=== PATIENT | female | born 1995 | race Caucasian/White ===

== ENCOUNTER 2019-04-16 12:10 | Inpatient (IN) | payer OTHER ==
[2019-04-16 15:26] VITALS: BMI 22.0
--- NOTE | 2019-04-16 16:40 | HP ---
COWS - Scale Resting Pulse: 0= [place] 80 or Below Sweatin=Flushed/Facial Moisture Restless Observation: 1= Difficult to Sit Still Pupil Size: 0= Normal to Room Light Bone or Joint Aches: 2= Severe Diffuse Aches Runny Nose/ Eye Tearin= Nasal Congestion GI Upset > 30mins: 1= Stomach Cramp Tremor Observation: 2= Slight Tremor Visible Yawning Observation: 2= >3x During Session Anxiety or Irritability: 2=Irritable/Anxious Goose Flesh Skin: 0=Smooth Skin COWS Score: 13 CIWA Score - Admission Criteria [facility]ASAS Guidelines: Admission for Medically Managed Detox: Requires at least one of the followin. CIWA greater than 12 2. Seizures within the past 24 hours 3. Delirium tremens within the past 24 hours 4. Hallucinations within the past 24 hours 5. Acute intervention needed for co occurring medical disorder 6. Acute intervention needed for co occurring psychiatric disorder 7. Severe withdrawal that cannot be handled at a lower level of care (continued vomiting, continued diarrhea, abnormal vital signs) requiring intravenous medication and/or fluids 8. Admission ROS [facility] - [facility] Chief Complaint: I need to stop using the percocets. This is taking over my life for the past 7years and now I am ready for detox. Allergies/Adverse Reactions: Allergies Allergy/AdvReac Type Severity Reaction Status Date / Time No Known Allergies Allergy Verified 04/16/19 15:17 History of Present Illness: pt is a 24yr old female with a history of percocet dependence seeking detox for treatment. This is her first time in detox. Exam Limitations: No Limitations - Ebola screening Have you traveled outside of the country in the last 21 days: No Have you had contact with anyone from an Ebola affected area: No Have you been sick,other than usual withdrawal symptoms: No Do you have a fever: No - Review of Systems Constitutional: Chills, Loss of Appetite, Night Sweats, Changes in sleep EENT: reports: Tearing, Nose Congestion Respiratory: reports: No Symptoms reported Cardiac: reports: No Symptoms Reported GI: reports: Poor Fluid Intake, Abdominal cramping : reports: No Symptoms Reported Musculoskeletal: reports: Back Pain, Muscle Pain Integumentary: reports: Flushing, Sweating Neuro: reports: Tingling, Tremors Endocrine: reports: Excessive Sweating, Flushing, Intolerance to Cold, Intolerance to Heat Hematology: reports: No Symptoms Reported Psychiatric: reports: Judgement Intact, Mood/Affect Appropiate, Orientated x3, Agitated, Anxious Other Systems: Reviewed and Negative Patient History - Patient Medical History Hx Anemia: No Hx Asthma: No Hx Chronic Obstructive Pulmonary Disease (COPD): No Hx Cancer: No Hx Cardiac Disorders: No Hx Congestive Heart Failure: No Hx Hypertension: No Hx Hypercholesterolemia: No Hx Pacemaker: No HX Cerebrovascular Accident: No Hx Seizures: No Hx Dementia: No Hx Diabetes: No Hx Gastrointestinal Disorders: No Hx Liver Disease: No Hx Genitourinary Disorders: No Hx Sexually Transmitted Disorders: No Hx Renal Disease (ESRD): No Hx Thyroid Disease: No Hx Human Immunodeficiency Virus (HIV): No (negative) Hx Hepatitis C: No (negative) Hx Depression: No Hx Suicide Attempt: No (pt denies) Hx Bipolar Disorder: No Hx Schizophrenia: No - Patient Surgical History Past Surgical History: Yes Other Surgical History: breast augmentation - PPD History Previous Implant?: Yes Documented Results: Negative w/o proof PPD to be Administered?: Yes - Reproductive History Patient is a Female of Child Bearing Age (11 -55 yrs old): Yes LMP comment: 09/2018; on control/implant in left forarm Patient : No - Smoking Cessation Smoking history: Current every day smoker Have you smoked in the past 12 months: Yes Aproximately how many cigarettes per day: 40 Hx Chewing Tobacco Use: No Initiated information on smoking cessation: Yes 'Breaking Loose' booklet given: 04/16/19 - Substance & Tx. History Hx Alcohol Use: Yes Hx Substance Use: Yes Substance Use Type: Marijuana, Opiates Hx Substance Use Treatment: No - Substances abused Other Other (specify): Percocet Substance route: Oral Frequency: Daily Amount used: 25-30 pills of Percocet 10mg Age of first use: 16 Date of last use: 04/16/19 Marijuana/Hashish Substance route: Smoking Frequency: Daily Amount used: 2-3 blints per day Age of first use: 13 Date of last use: 04/15/19 Family Disease History - Family Disease History Family History: Denies Admission Physical Exam BHS - Vital Signs Vital Signs: Vital Signs - 24 hr 04/16/19 15:19 Temperature 98.2 F Pulse Rate 63 Respiratory 18 Rate Blood Pressure 99/64 - Physical General Appearance: Yes: Appropriately Dressed, Moderate Distress, Tremorous, Irritable, Sweating, Anxious HEENTM: Yes: Hearing grossly Normal, Normal Voice, Nasal Congestion, Rhinorrhea Respiratory: Yes: Lungs Clear, Normal Breath Sounds, No Respiratory Distress Neck: Yes: No masses,lesions,Nodules Breast: Yes: Within Normal Limits Cardiology: Yes: Regular Rhythm, Regular Rate, S1, S2 Abdominal: Yes: Normal Bowel Sounds, Non Tender, Soft Genitourinary: Yes: Within Normal Limits Back: Yes: Normal Inspection Musculoskeletal: Yes: full range of Motion Extremities: Yes: Normal Capillary Refill, Normal Inspection, Non-Tender, Tremors Neurological: Yes: Fully Oriented, Normal Response Integumentary: Yes: Normal Color, Diaphoresis Lymphatic: Yes: Within Normal Limits - Diagnostic (1) Opioid dependence with withdrawal Current Visit: Yes Status: Chronic (2) Nicotine dependence Current Visit: Yes Status: Chronic Qualifiers: Nicotine product type: cigarettes Substance use status: uncomplicated Qualified Code(s): F17.210 - Nicotine dependence, cigarettes, uncomplicated (3) H/O breast augmentation Current Visit: No Status: Chronic Cleared for Admission [facility] - Detox or Rehab [facility] Level of Care: Medically Managed Detox Regimen/Protocol: Methadone Breathalyzer - Breathalyzer Breathalyzer: 0 Urine Drug Screen - Test Device Lot number: [id number] Expiration date: 12/19/20 - Control Is test valid?: Yes - Results Drug screen NEGATIVE: No Urine drug screen results: THC-Marijuana, MOP-Opiates, OXY-Oxycodone Inpatient Rehab Admission - Rehab Decision to Admit Inpatient rehab admission?: No
[2019-04-16] MEDS ORDERED: hydrOXYzine PAMOATE 25 MG CAPSULE (FP) PO PRN (17:09)
[2019-04-16] MEDS ORDERED: MAG HYDROX/AL HYDROX/SIMETH 30 ML UNIT-DOSE CUP PO PRN (17:09)
[2019-04-16] MEDS ORDERED: P-EPHED 60MG/TRIPROLIDI 2.5MG TABLET PO PRN (17:09)
[2019-04-16] MEDS ORDERED: ACETAMINOPHEN 325 MG TABLET (FP) PO PRN ×2 (17:09)
[2019-04-16] MEDS ORDERED: MENTHOL/PHENOL 1 EACH UD MM PRN (17:09)
[2019-04-16] MEDS ORDERED: cloNIDine HCL 0.1 MG TABLET PO PRN (17:09)
[2019-04-16] MEDS ORDERED: NICOTINE POLACRILEX 4 MG GUM BUC PRN (17:09)
[2019-04-16] MEDS ORDERED: IBUPROFEN 400 MG TABLET (FP) PO PRN (17:09)
[2019-04-16] MEDS ORDERED: DICYCLOMINE HCL 10 MG CAPSULE PO PRN (17:09)
[2019-04-16] MEDS ORDERED: ONDANSETRON *ODT* 4 MG TABLET SL PRN (17:09)
[2019-04-16] MEDS ORDERED: MAGNESIUM CITRATE 300 ML BOTTLE PO PRN (17:09)
[2019-04-16] MEDS ORDERED: MAGNESIUM HYDROX 2400MG/30ML ORAL SUSPENSION 30 ML CUP PO PRN (17:09)
[2019-04-16] MEDS ORDERED: METHADONE HCL 10 MG TABLET (FOR DETOX USE ONLY) PO ONE ×2 (18:15→23:00)
[2019-04-16] MEDS ORDERED: TUBERCULIN PPD 5 TU/0.1ML VIAL ID ONE (18:17)
[2019-04-16] MEDS: diazePAM 5 MG TABLET PO PRN (18:21)
[2019-04-16] MEDS: THIAMINE HCL 100 MG TABLET (FP) PO SCH (22:23)
[2019-04-16] MEDS: MELATONIN 5 MG TABLETS PO PRN (22:24)
[2019-04-17] MEDS ORDERED: METHADONE HCL 10 MG TABLET (FOR DETOX USE ONLY) PO ONE (10:00)
[2019-04-17] MEDS: NICOTINE 21 MG/24 HOURS TOPICAL PATCH TD SCH (10:16)
[2019-04-17] MEDS: PRENATAL VITAMINS W/ FOLIC ACID TABLET (FP) PO SCH (10:16)
[2019-04-17] MEDS: diazePAM 5 MG TABLET PO PRN ×3 (10:18→22:23)
[2019-04-17 11:06] LABS: HEMOGLOBIN 13.5 GM/dL (10.7-15.3); MCH 32.4 pg (25.7-33.7); MCHC 33.8 g/dl (32.0-36.0); MEAN CELL VOLUME 95.9 fl (80-96); MEAN PLT VOLUME 9.6 fl (7.5-11.1); PLATELET COUNT 361 K/MM3 (134-434); RBC 4.17 M/mm3 (3.60-5.2); RDW 13.6 % (11.6-15.6); WHITE BLOOD COUNT 7.4 K/mm3 (4.0-10.0)
[2019-04-17 11:07] LABS: ALBUMIN 4.6 g/dl (3.4-5.0); BILIRUBIN,TOTAL 1.4 mg/dL (0.2-1); BLOOD UREA NITROGEN 9.8 mg/dL (7-18); CALCIUM 10.1 mg/dL (8.5-10.1); CREATININE 0.6 mg/dL (0.55-1.3); POTASSIUM 4.5 mmol/L (3.5-5.1); TOT PROT 7.6 g/dl (6.4-8.2)
--- NOTE | 2019-04-17 13:08 | PN ---
S COWS - Scale Resting Pulse: 0= [place] 80 or Below Sweatin= Chills/Flushing Restless Observation: 1= Difficult to Sit Still Pupil Size: 1= Pupils >than Normal Bone or Joint Aches: 2= Severe Diffuse Aches Runny Nose/ Eye Tearin= Runny Nose/Eyes GI Upset > 30mins: 2= Nausea/Diarrhea Tremor Observation of Outstretched Hands: 2= Slight Tremor Visible Yawning Observation: 1= 1-2x During Session Anxiety or Irritability: 2=Irritable/Anxious Goose Flesh Skin: 0=Smooth Skin COWS Score: 14 S Progress Note (SOAP) Subjective: alert,irritable,anxious,pain in the body and back,tremor Objective: 04/17/19 13:06 Vital Signs Temperature 98.2 F 04/17/19 09:24 Pulse Rate 82 04/17/19 09:24 Respiratory Rate 18 04/17/19 09:24 Blood Pressure 105/72 04/17/19 09:24 O2 Sat by Pulse Oximetry (%) Laboratory Last Values WBC 7.4 K/mm3 (4.0-10.0) 04/17/19 07:30 RBC 4.17 M/mm3 (3.60-5.2) 04/17/19 07:30 Hgb 13.5 GM/dL (10.7-15.3) 04/17/19 07:30 Hct 40.0 % (32.4-45.2) 04/17/19 07:30 MCV 95.9 fl (80-96) 04/17/19 07:30 MCH 32.4 pg (25.7-33.7) 04/17/19 07:30 MCHC 33.8 g/dl (32.0-36.0) 04/17/19 07:30 RDW 13.6 % (11.6-15.6) 04/17/19 07:30 Plt Count 361 K/MM3 (134-434) 04/17/19 07:30 MPV 9.6 fl (7.5-11.1) 04/17/19 07:30 Sodium 141 mmol/L (136-145) 04/17/19 07:30 Potassium 4.5 mmol/L (3.5-5.1) 04/17/19 07:30 Chloride 105 mmol/L (98-107) 04/17/19 07:30 Carbon Dioxide 32 mmol/L (21-32) 04/17/19 07:30 Anion Gap 4 MMOL/L (8-16) L 04/17/19 07:30 BUN 9.8 mg/dL (7-18) 04/17/19 07:30 Creatinine 0.6 mg/dL (0.55-1.3) 04/17/19 07:30 Est GFR (CKD-EPI)AfAm 147.86 04/17/19 07:30 Est GFR (CKD-EPI)NonAf 127.58 04/17/19 07:30 Random Glucose 80 mg/dL (74-106) 04/17/19 07:30 Calcium 10.1 mg/dL (8.5-10.1) 04/17/19 07:30 Total Bilirubin 1.4 mg/dL (0.2-1) H 04/17/19 07:30 AST 12 U/L (15-37) L 04/17/19 07:30 ALT 16 U/L (13-61) 04/17/19 07:30 Alkaline Phosphatase 116 U/L (45-117) 04/17/19 07:30 Total Protein 7.6 g/dl (6.4-8.2) 04/17/19 07:30 Albumin 4.6 g/dl (3.4-5.0) 04/17/19 07:30 POC Urine HCG, Qual Negative 04/16/19 16:07 RPR Titer Nonreactive (NONREACTIVE) 04/17/19 07:30 Assessment: 04/17/19 13:07 withdrawal symptom Plan: continue detox
--- NOTE | 2019-04-17 13:41 | EKG ---
Test Reason : Blood Pressure : / mmHG Vent. Rate : 071 BPM Atrial Rate : 071 BPM P-R Int : 136 ms QRS Dur : 086 ms QT Int : 420 ms P-R-T Axes : 039 057 030 degrees QTc Int : 456 ms SINUS RHYTHM WITH MARKED SINUS ARRHYTHMIA OTHERWISE NORMAL ECG NO PREVIOUS ECGS AVAILABLE Confirmed by JUAN KUHN, SANTA ([id number]) on 04/17/2019 1:41:45 PM Referred By: CAROLA GAFFNEY Confirmed By:SANTA MARTINEZ MD
[2019-04-17] MEDS: MELATONIN 5 MG TABLETS PO PRN (22:23)
[2019-04-17] MEDS: THIAMINE HCL 100 MG TABLET (FP) PO SCH (22:23)
[2019-04-18] MEDS: diazePAM 5 MG TABLET PO PRN ×4 (06:14→22:34)
[2019-04-18 09:25] LABS: EPI CELLS 11.8 /HPF (0-5/HPF); HYALINE CASTS 0 /lpf (0-8); URINE APPEARANCE CLEAR; URINE BACTERIA 332.5 /hpf (NEGATIVE); URINE BILIRUBIN NEGATIVE (NEGATIVE); URINE COLOR YELLOW; URINE GLUCOSE (UA) NEGATIVE (NEGATIVE); URINE KETONE NEGATIVE (NEGATIVE); URINE LEUK ESTERASE TRACE (NEGATIVE); URINE NITRITE NEGATIVE (NEGATIVE); URINE PROTEIN NEGATIVE (NEGATIVE); URINE RBC 1 /hpf (0-4); URINE UROBILINOGEN 0.2 mg/dL (0.2-1.0); URINE WBC 2 /hpf (0-5)
[2019-04-18] MEDS ORDERED: METHADONE HCL 10 MG TABLET (FOR DETOX USE ONLY) PO ONE (10:00)
[2019-04-18] MEDS: PRENATAL VITAMINS W/ FOLIC ACID TABLET (FP) PO SCH (10:08)
[2019-04-18] MEDS: NICOTINE 21 MG/24 HOURS TOPICAL PATCH TD SCH (10:08)
--- NOTE | 2019-04-18 13:01 | PN ---
S COWS - Scale Resting Pulse: 1= [place] 81-100 Sweatin= Chills/Flushing Restless Observation: 1= Difficult to Sit Still Pupil Size: 1= Pupils >than Normal Bone or Joint Aches: 2= Severe Diffuse Aches Runny Nose/ Eye Tearin= Nasal Congestion GI Upset > 30mins: 2= Nausea/Diarrhea Tremor Observation of Outstretched Hands: 1= Tremor [place], Not Seen Yawning Observation: 1= 1-2x During Session Anxiety or Irritability: 2=Irritable/Anxious Goose Flesh Skin: 0=Smooth Skin COWS Score: 13 S Progress Note (SOAP) Subjective: alert,irrtiable,anxious,interrupted sleep,tremor,pain in the body and back Objective: 04/18/19 13:00 Vital Signs Temperature 98.9 F 04/18/19 09:31 Pulse Rate 81 04/18/19 09:31 Respiratory Rate 16 04/18/19 09:31 Blood Pressure 101/69 04/18/19 09:31 O2 Sat by Pulse Oximetry (%) Laboratory Last Values WBC 7.4 K/mm3 (4.0-10.0) 04/17/19 07:30 RBC 4.17 M/mm3 (3.60-5.2) 04/17/19 07:30 Hgb 13.5 GM/dL (10.7-15.3) 04/17/19 07:30 Hct 40.0 % (32.4-45.2) 04/17/19 07:30 MCV 95.9 fl (80-96) 04/17/19 07:30 MCH 32.4 pg (25.7-33.7) 04/17/19 07:30 MCHC 33.8 g/dl (32.0-36.0) 04/17/19 07:30 RDW 13.6 % (11.6-15.6) 04/17/19 07:30 Plt Count 361 K/MM3 (134-434) 04/17/19 07:30 MPV 9.6 fl (7.5-11.1) 04/17/19 07:30 Sodium 141 mmol/L (136-145) 04/17/19 07:30 Potassium 4.5 mmol/L (3.5-5.1) 04/17/19 07:30 Chloride 105 mmol/L (98-107) 04/17/19 07:30 Carbon Dioxide 32 mmol/L (21-32) 04/17/19 07:30 Anion Gap 4 MMOL/L (8-16) L 04/17/19 07:30 BUN 9.8 mg/dL (7-18) 04/17/19 07:30 Creatinine 0.6 mg/dL (0.55-1.3) 04/17/19 07:30 Est GFR (CKD-EPI)AfAm 147.86 04/17/19 07:30 Est GFR (CKD-EPI)NonAf 127.58 04/17/19 07:30 Random Glucose 80 mg/dL (74-106) 04/17/19 07:30 Calcium 10.1 mg/dL (8.5-10.1) 04/17/19 07:30 Total Bilirubin 1.4 mg/dL (0.2-1) H 04/17/19 07:30 AST 12 U/L (15-37) L 04/17/19 07:30 ALT 16 U/L (13-61) 04/17/19 07:30 Alkaline Phosphatase 116 U/L (45-117) 04/17/19 07:30 Total Protein 7.6 g/dl (6.4-8.2) 04/17/19 07:30 Albumin 4.6 g/dl (3.4-5.0) 04/17/19 07:30 Urine Color Yellow 04/17/19 09:28 Urine Appearance Clear 04/17/19 09:28 Urine pH 7.0 (5.0-8.0) 04/17/19 09:28 Ur Specific [place] 1.009 (1.010-1.035) L 04/17/19 09:28 Urine Protein Negative (NEGATIVE) 04/17/19 09:28 Urine Glucose (UA) Negative (NEGATIVE) 04/17/19 09:28 Urine Ketones Negative (NEGATIVE) 04/17/19 09:28 Urine Blood Negative (NEGATIVE) 04/17/19 09:28 Urine Nitrite Negative (NEGATIVE) 04/17/19 09:28 Urine Bilirubin Negative (NEGATIVE) 04/17/19 09:28 Urine Urobilinogen 0.2 mg/dL (0.2-1.0) 04/17/19 09:28 Ur Leukocyte Esterase Trace (NEGATIVE) 04/17/19 09:28 Urine WBC (Auto) 2 /hpf (0-5) 04/17/19 09:28 Urine RBC (Auto) 1 /hpf (0-4) 04/17/19 09:28 Urine Casts (Auto) 0 /lpf (0-8) 04/17/19 09:28 U Epithel Cells (Auto) 11.8 /HPF (0-5/HPF) 04/17/19 09:28 Urine Bacteria (Auto) 332.5 /hpf (NEGATIVE) 04/17/19 09:28 POC Urine HCG, Qual Negative 04/16/19 16:07 RPR Titer Nonreactive (NONREACTIVE) 04/17/19 07:30 Assessment: 04/18/19 13:01 withdrawal symptom Plan: continue detox
[2019-04-18] MEDS: MELATONIN 5 MG TABLETS PO PRN (22:34)
[2019-04-18] MEDS: THIAMINE HCL 100 MG TABLET (FP) PO SCH (22:34)
[2019-04-18] MEDS: BACLOFEN 10 MG TABLET (FP) PO PRN (22:34)
[2019-04-19] MEDS ORDERED: METHADONE HCL 10 MG TABLET (FOR DETOX USE ONLY) PO ONE (10:00)
[2019-04-19] MEDS: NICOTINE 21 MG/24 HOURS TOPICAL PATCH TD SCH (10:22)
[2019-04-19] MEDS: PRENATAL VITAMINS W/ FOLIC ACID TABLET (FP) PO SCH (10:22)
[2019-04-19] MEDS: diazePAM 5 MG TABLET PO PRN ×2 (10:22→15:42)
--- NOTE | 2019-04-19 15:16 | PN ---
BHS COWS - Scale Resting Pulse: 2= [place] 101-120 Sweatin= No chills or Flushing Restless Observation: 1= Difficult to Sit Still Pupil Size: 0= Normal to Room Light Bone or Joint Aches: 0= None Runny Nose/ Eye Tearin= None GI Upset > 30mins: 1= Stomach Cramp Tremor Observation of Outstretched Hands: 0= None Yawning Observation: 1= 1-2x During Session Anxiety or Irritability: 2=Irritable/Anxious Goose Flesh Skin: 0=Smooth Skin COWS Score: 7 BHS Progress Note (SOAP) Subjective: Stomach Cramping (Mild). Objective: PATIENT A & O X 3, OBSERVED AMBULATING ON UNIT UNASSISTED. IN NO ACUTE DISTRESS. 04/19/19 15:14 Vital Signs Temperature 97.9 F 04/19/19 13:33 Pulse Rate 97 H 04/19/19 13:33 Respiratory Rate 18 04/19/19 13:33 Blood Pressure 108/68 04/19/19 13:33 O2 Sat by Pulse Oximetry (%) Laboratory Tests 04/16/19 04/17/19 04/17/19 16:07 07:30 07:30 WBC 7.4 RBC 4.17 Hgb 13.5 Hct 40.0 MCV 95.9 MCH 32.4 MCHC 33.8 RDW 13.6 Plt Count 361 MPV 9.6 Sodium 141 Potassium 4.5 Chloride 105 Carbon Dioxide 32 Anion Gap 4 L BUN 9.8 Creatinine 0.6 Est GFR (CKD-EPI)AfAm 147.86 Est GFR (CKD-EPI)NonAf 127.58 Random Glucose 80 Calcium 10.1 Total Bilirubin 1.4 H AST 12 L ALT 16 Alkaline Phosphatase 116 Total Protein 7.6 Albumin 4.6 Urine Color Urine Appearance Urine pH Ur Specific [place] Urine Protein Urine Glucose (UA) Urine Ketones Urine Blood Urine Nitrite Urine Bilirubin Urine Urobilinogen Ur Leukocyte Esterase Urine WBC (Auto) Urine RBC (Auto) Urine Casts (Auto) U Epithel Cells (Auto) Urine Bacteria (Auto) POC Urine HCG, Qual Negative RPR Titer 04/17/19 04/17/19 07:30 09:28 WBC RBC Hgb Hct MCV MCH MCHC RDW Plt Count MPV Sodium Potassium Chloride Carbon Dioxide Anion Gap BUN Creatinine Est GFR (CKD-EPI)AfAm Est GFR (CKD-EPI)NonAf Random Glucose Calcium Total Bilirubin AST ALT Alkaline Phosphatase Total Protein Albumin Urine Color Yellow Urine Appearance Clear Urine pH 7.0 Ur Specific [place] 1.009 L Urine Protein Negative Urine Glucose (UA) Negative Urine Ketones Negative Urine Blood Negative Urine Nitrite Negative Urine Bilirubin Negative Urine Urobilinogen 0.2 Ur Leukocyte Esterase Trace Urine WBC (Auto) 2 Urine RBC (Auto) 1 Urine Casts (Auto) 0 U Epithel Cells (Auto) 11.8 Urine Bacteria (Auto) 332.5 POC Urine HCG, Qual RPR Titer Nonreactive LABS NOTED. Assessment: 04/19/19 15:15 WITHDRAWAL SYMPTOMS. Plan: CONTINUE DETOX. PATIENT SCHEDULED FOR D/C FROM DETOX UNIT TOMORROW.
[2019-04-19] MEDS: MELATONIN 5 MG TABLETS PO PRN (22:24)
[2019-04-19] MEDS: THIAMINE HCL 100 MG TABLET (FP) PO SCH (22:24)
[2019-04-19] MEDS: BACLOFEN 10 MG TABLET (FP) PO PRN (22:25)
[2019-04-20] MEDS ORDERED: METHADONE HCL 5 MG TABLET (FOR DETOX USE ONLY) PO ONE (06:00)
[2019-04-20 06:20] VITALS: BP 92/51; PULSE 57; TEMP 97.9
--- NOTE | 2019-04-20 12:14 | DS ---
[facility] Detox Discharge Summary Admission Date: 04/16/19 Discharge Date: 04/20/19 - History Present History: Opioid Dependence Additional Comments: Detox completed and d/c'd today. Pt reports will seek primary care with [facility] close to her residence. Alert o x 3. Nad. Pertinent Past History: See Dx - Physical Exam Results Vital Signs: Vital Signs Temperature 97.9 F 04/20/19 06:19 Pulse Rate 57 L 04/20/19 06:19 Respiratory Rate 18 04/20/19 06:19 Blood Pressure 92/51 L 04/20/19 06:19 O2 Sat by Pulse Oximetry (%) Pertinent Admission Physical Exam Findings: withdrawal sx Laboratory Tests 04/16/19 04/17/19 04/17/19 16:07 07:30 07:30 WBC 7.4 RBC 4.17 Hgb 13.5 Hct 40.0 MCV 95.9 MCH 32.4 MCHC 33.8 RDW 13.6 Plt Count 361 MPV 9.6 Sodium 141 Potassium 4.5 Chloride 105 Carbon Dioxide 32 Anion Gap 4 L BUN 9.8 Creatinine 0.6 Est GFR (CKD-EPI)AfAm 147.86 Est GFR (CKD-EPI)NonAf 127.58 Random Glucose 80 Calcium 10.1 Total Bilirubin 1.4 H AST 12 L ALT 16 Alkaline Phosphatase 116 Total Protein 7.6 Albumin 4.6 Urine Color Urine Appearance Urine pH Ur Specific [place] Urine Protein Urine Glucose (UA) Urine Ketones Urine Blood Urine Nitrite Urine Bilirubin Urine Urobilinogen Ur Leukocyte Esterase Urine WBC (Auto) Urine RBC (Auto) Urine Casts (Auto) U Epithel Cells (Auto) Urine Bacteria (Auto) POC Urine HCG, Qual Negative RPR Titer 04/17/19 04/17/19 07:30 09:28 WBC RBC Hgb Hct MCV MCH MCHC RDW Plt Count MPV Sodium Potassium Chloride Carbon Dioxide Anion Gap BUN Creatinine Est GFR (CKD-EPI)AfAm Est GFR (CKD-EPI)NonAf Random Glucose Calcium Total Bilirubin AST ALT Alkaline Phosphatase Total Protein Albumin Urine Color Yellow Urine Appearance Clear Urine pH 7.0 Ur Specific [place] 1.009 L Urine Protein Negative Urine Glucose (UA) Negative Urine Ketones Negative Urine Blood Negative Urine Nitrite Negative Urine Bilirubin Negative Urine Urobilinogen 0.2 Ur Leukocyte Esterase Trace Urine WBC (Auto) 2 Urine RBC (Auto) 1 Urine Casts (Auto) 0 U Epithel Cells (Auto) 11.8 Urine Bacteria (Auto) 332.5 POC Urine HCG, Qual RPR Titer Nonreactive - Treatment Hospital Course: Detox Protocol Followed, Detoxed Safely, Responded well, Discharged Condition Good - Medication Discharge Medications: Ambulatory Orders NK [No Known Home Medication] 04/16/19 - Diagnosis (1) Hyperbilirubinemia Current Visit: Yes Status: Acute (2) Nicotine dependence Current Visit: Yes Status: Chronic Qualifiers: Nicotine product type: cigarettes Substance use status: uncomplicated Qualified Code(s): F17.210 - Nicotine dependence, cigarettes, uncomplicated (3) Opioid dependence with withdrawal Current Visit: Yes Status: Acute (4) H/O breast augmentation Current Visit: Yes Status: Chronic - AMA Did Patient Leave Against Medical Advice: No
== END 2019-04-20 08:50 | disposition home or self-care (01) | DRG 773 ==
LOC: YASAS 12:10 → Y3N 17:44
PROVIDERS: ADMIT Surgery; ATTEND Surgery
PROC: HZ2ZZZZ Detoxification Services for Substance Abuse Treatment (ICD-10-PCS; principal; 2019-04-16)
DX: F11.23 Opioid dependence with withdrawal (principal); F17.210 Nicotine dependence, cigarettes, uncomplicated; E80.6 Other disorders of bilirubin metabolism; Z98.82 Breast implant status
CPT/HCPCS: 36415; 80053; 81003; 81025; 85027; 86593; 93005; 93010; J0475

== ENCOUNTER 2022-03-27 08:55 | Inpatient (IN) | payer OTHER ==
[2022-03-27 09:51] VITALS: BMI 22.2
[2022-03-27] MEDS ORDERED: ONDANSETRON *ODT* 4 MG TABLET SL PRN (10:22)
[2022-03-27] MEDS ORDERED: MAG HYDROX/AL HYDROX/SIMETH 30 ML UNIT-DOSE CUP PO PRN (10:22)
[2022-03-27] MEDS ORDERED: cloNIDine HCL 0.1 MG TABLET PO ONE (10:22)
[2022-03-27] MEDS ORDERED: IBUPROFEN 600 MG TABLET (FP) PO PRN (10:22)
[2022-03-27] MEDS ORDERED: IBUPROFEN 400 MG TABLET (FP) PO PRN (10:22)
[2022-03-27] MEDS ORDERED: BENZOCAINE/MENTHOL (CHLORASEPTIC ) LOZENGE MM PRN (10:22)
[2022-03-27] MEDS ORDERED: MAGNESIUM CITRATE 300 ML BOTTLE PO PRN (10:22)
[2022-03-27] MEDS ORDERED: BUPRENORPHINE HCL 150 MCG, BUPRENORPHINE HCL 75 MCG BC PRN (10:22)
[2022-03-27] MEDS ORDERED: NALOXONE HCL (KLOXXADO) 8 MG SPRAY NS PRN (10:22)
[2022-03-27] MEDS ORDERED: DICYCLOMINE HCL 10 MG CAPSULE PO PRN (10:22)
[2022-03-27] MEDS ORDERED: diazePAM 5 MG TABLET PO PRN ×2 (10:22→10:26)
[2022-03-27] MEDS ORDERED: LOPERAMIDE HCL 2 MG CAPSULE PO PRN (10:22)
[2022-03-27] MEDS ORDERED: ACETAMINOPHEN 325 MG TABLET (FP) PO PRN ×2 (10:22)
[2022-03-27] MEDS ORDERED: BISMUTH SUBSALICYLATE 262 MG/15 ML BTL PO PRN (10:22)
[2022-03-27] MEDS ORDERED: BUPRENORPHINE HCL 150 MCG, BUPRENORPHINE HCL 75 MCG BC ONE (10:22)
[2022-03-27] MEDS ORDERED: MAGNESIUM HYDROX 2400MG/30ML ORAL SUSPENSION 30 ML CUP PO PRN (10:22)
[2022-03-27] MEDS ORDERED: BUPRENORPHINE HCL 75 MCG FILM BC ONE (11:04)
[2022-03-27] MEDS ORDERED: BUPRENORPHINE HCL 150 MCG FILM BC ONE (11:04)
[2022-03-27] MEDS: METHOCARBAMOL 500 MG TABLET PO PRN ×2 (11:45→17:58)
[2022-03-27] MEDS: PRENATAL VITAMINS W/ FOLIC ACID TABLET (FP) PO SCH (11:46)
[2022-03-27] MEDS: NICOTINE 21 MG/24 HOURS TOPICAL PATCH TD SCH (11:46)
[2022-03-27] MEDS ORDERED: cloNIDine HCL 0.1 MG TABLET PO PRN (14:22)
[2022-03-27] MEDS: hydrOXYzine PAMOATE 25 MG CAPSULE (FP) PO SCH ×3 (14:46→22:26)
[2022-03-27] MEDS: diazePAM 5 MG TABLET PO SCH ×2 (17:55→22:26)
[2022-03-27] MEDS ORDERED: MELATONIN 5 MG TABLETS PO SCH (22:00)
[2022-03-27] MEDS: THIAMINE HCL 100 MG TABLET (FP) PO SCH (22:26)
[2022-03-28] MEDS ORDERED: BUPRENORPHINE HCL 150 MCG, BUPRENORPHINE HCL 75 MCG BC PRN
[2022-03-28] MEDS ORDERED: BUPRENORPHINE HCL 75 MCG FILM BC ONE (04:16)
[2022-03-28] MEDS ORDERED: BUPRENORPHINE HCL 150 MCG FILM BC ONE (04:16)
[2022-03-28] MEDS: diazePAM 5 MG TABLET PO SCH ×4 (05:51→22:20)
[2022-03-28] MEDS: hydrOXYzine PAMOATE 25 MG CAPSULE (FP) PO SCH ×5 (05:52→22:19)
[2022-03-28] MEDS ORDERED: BUPRENORPHINE HCL 150 MCG, BUPRENORPHINE HCL 75 MCG BC SCH (06:00)
[2022-03-28] MEDS: NICOTINE 10 MG CARTRIDGE (INHALER) IH PRN (06:59)
[2022-03-28] MEDS: NICOTINE 21 MG/24 HOURS TOPICAL PATCH TD SCH (10:34)
[2022-03-28] MEDS: PRENATAL VITAMINS W/ FOLIC ACID TABLET (FP) PO SCH (10:34)
[2022-03-28] MEDS ORDERED: methaDONE HCL 10 MG TABLET (FOR DETOX USE ONLY) PO ONE (10:41)
[2022-03-28] MEDS ORDERED: LOPERAMIDE HCL 2 MG CAPSULE PO ONE (10:46)
[2022-03-28 10:56] LABS: HEMATOCRIT 40.7 % (32.4-45.2); HEMOGLOBIN 13.8 GM/dL (10.7-15.3); MCH 34.8 pg (25.7-33.7); MCHC 33.9 g/dl (32.0-36.0); MEAN CELL VOLUME 102.6 fl (80-96); MEAN PLT VOLUME 8.9 fl (7.5-11.1); PLATELET COUNT 517 10^3/uL (134-434); RBC 3.97 M/mm3 (3.60-5.2); RDW 14.3 % (11.6-15.6); WHITE BLOOD COUNT 8.8 K/mm3 (4.0-10.0)
[2022-03-28 11:00] LABS: CALCIUM 9.5 mg/dL (8.5-10.1)
[2022-03-28 11:01] LABS: ALBUMIN 4.5 g/dl (3.4-5.0); BLOOD UREA NITROGEN 14.5 mg/dL (7-18)
[2022-03-28 11:05] LABS: BILIRUBIN,TOTAL 1.3 mg/dL (0.2-1); CREATININE 0.6 mg/dL (0.55-1.3)
[2022-03-28 11:06] LABS: TOT PROT 7.6 g/dl (6.4-8.2)
[2022-03-28] MEDS: METHOCARBAMOL 500 MG TABLET PO PRN (17:37)
[2022-03-28] MEDS: MELATONIN 5 MG TABLETS PO SCH (22:19)
[2022-03-28] MEDS: THIAMINE HCL 100 MG TABLET (FP) PO SCH (22:19)
[2022-03-29] MEDS: hydrOXYzine PAMOATE 25 MG CAPSULE (FP) PO SCH ×5 (05:28→22:26)
[2022-03-29] MEDS: diazePAM 5 MG TABLET PO SCH ×3 (05:28→22:26)
[2022-03-29] MEDS ORDERED: BUPRENORPHINE HCL 450 MCG FILM BC SCH (06:00)
[2022-03-29] MEDS: PRENATAL VITAMINS W/ FOLIC ACID TABLET (FP) PO SCH (10:17)
[2022-03-29] MEDS: NICOTINE 21 MG/24 HOURS TOPICAL PATCH TD SCH (10:18)
[2022-03-29] MEDS: METHOCARBAMOL 500 MG TABLET PO PRN ×2 (10:19→22:29)
[2022-03-29] MEDS: THIAMINE HCL 100 MG TABLET (FP) PO SCH (22:26)
[2022-03-29] MEDS: MELATONIN 5 MG TABLETS PO SCH (22:26)
[2022-03-30] MEDS: diazePAM 5 MG TABLET PO SCH ×2 (05:37→18:40)
[2022-03-30] MEDS: hydrOXYzine PAMOATE 25 MG CAPSULE (FP) PO SCH ×5 (05:37→22:40)
[2022-03-30] MEDS ORDERED: BUPRENORPHINE/NALOXONE 4 MG/1 MG FILM PACKET SL SCH (06:00)
[2022-03-30] MEDS ORDERED: methaDONE HCL 10 MG TABLET (FOR DETOX USE ONLY) PO ONE (10:00)
[2022-03-30] MEDS: PRENATAL VITAMINS W/ FOLIC ACID TABLET (FP) PO SCH (10:11)
[2022-03-30] MEDS: NICOTINE 21 MG/24 HOURS TOPICAL PATCH TD SCH (10:12)
[2022-03-30] MEDS: NICOTINE 10 MG CARTRIDGE (INHALER) IH PRN (10:12)
[2022-03-30] MEDS: MELATONIN 5 MG TABLETS PO SCH (22:39)
[2022-03-30] MEDS: THIAMINE HCL 100 MG TABLET (FP) PO SCH (22:40)
[2022-03-30] MEDS: METHOCARBAMOL 500 MG TABLET PO PRN (22:40)
[2022-03-31] MEDS: hydrOXYzine PAMOATE 25 MG CAPSULE (FP) PO SCH (05:18)
[2022-03-31] MEDS ORDERED: diazePAM 5 MG TABLET PO ONE (06:00)
[2022-03-31] MEDS ORDERED: BUPRENORPHINE/NALOXONE 8 MG/2 MG FILM PACKET SL ONE (06:00)
[2022-03-31 09:53] VITALS: BP 135/75; PULSE 96; TEMP 96.6
== END 2022-03-31 10:04 | disposition home or self-care (01) | DRG 773 ==
LOC: YASAS 08:55 → Y6N 10:56
PROVIDERS: ADMIT Allergy & Immunology; ATTEND Surgery
PROC: HZ2ZZZZ Detoxification Services for Substance Abuse Treatment (ICD-10-PCS; principal; 2022-03-27)
DX: F11.23 Opioid dependence with withdrawal (principal); F13.230 Sedative, hypnotic or anxiolytic dependence with withdrawal, uncomplicated; F10.10 Alcohol abuse, uncomplicated; F12.10 Cannabis abuse, uncomplicated; F17.210 Nicotine dependence, cigarettes, uncomplicated; F19.282 Other psychoactive substance dependence with psychoactive substance-induced sleep disorder; F41.0 Panic disorder [episodic paroxysmal anxiety]; F41.9 Anxiety disorder, unspecified; E80.6 Other disorders of bilirubin metabolism; Z28.310 Unvaccinated for COVID-19; Z86.69 Personal history of other diseases of the nervous system and sense organs; Z88.0 Allergy status to penicillin
CPT/HCPCS: 36415; 80053; 81025; 85027; 86780; 87811; C9803-CS; J0735; U0003; U0005

== ENCOUNTER 2022-09-03 09:20 | Inpatient (IN) | payer OTHER ==
[2022-09-03] MEDS ORDERED: IBUPROFEN 400 MG TABLET (FP) PO PRN (11:03)
[2022-09-03] MEDS ORDERED: NALOXONE HCL (KLOXXADO) 8 MG SPRAY NS PRN (11:03)
[2022-09-03] MEDS ORDERED: LOPERAMIDE HCL 2 MG CAPSULE PO PRN (11:03)
[2022-09-03] MEDS ORDERED: BENZOCAINE/MENTHOL (CHLORASEPTIC ) LOZENGE MM PRN (11:03)
[2022-09-03] MEDS ORDERED: MAG HYDROX/AL HYDROX/SIMETH 30 ML UNIT-DOSE CUP PO PRN (11:03)
[2022-09-03] MEDS ORDERED: DICYCLOMINE HCL 10 MG CAPSULE PO PRN (11:03)
[2022-09-03] MEDS ORDERED: methaDONE HCL 10 MG TABLET (FOR DETOX USE ONLY) PO ONE (11:03)
[2022-09-03] MEDS ORDERED: BISMUTH SUBSALICYLATE 524 MG/30 ML PO PRN (11:03)
[2022-09-03] MEDS ORDERED: cloNIDine HCL 0.1 MG TABLET PO PRN (11:03)
[2022-09-03] MEDS ORDERED: ACETAMINOPHEN 325 MG TABLET (FP) PO PRN ×2 (11:03)
[2022-09-03] MEDS ORDERED: IBUPROFEN 600 MG TABLET (FP) PO PRN (11:03)
[2022-09-03] MEDS ORDERED: MAGNESIUM HYDROX 2400MG/30ML ORAL SUSPENSION 30 ML CUP PO PRN (11:03)
[2022-09-03 11:04] VITALS: BMI 23.4
[2022-09-03] MEDS ORDERED: NICOTINE 14 MG/24 HOURS TOPICAL PATCH TD SCH (11:15)
[2022-09-03] MEDS ORDERED: diazePAM 5 MG TABLET ONE (11:50)
[2022-09-03] MEDS ORDERED: methaDONE HCL 10 MG TABLET (FOR DETOX USE ONLY) ONE (11:51)
[2022-09-03] MEDS: diazePAM 5 MG TABLET PO SCH ×3 (11:58→22:25)
[2022-09-03] MEDS: NICOTINE 10 MG CARTRIDGE (INHALER) IH PRN (15:13)
[2022-09-03] MEDS: diazePAM 5 MG TABLET PO PRN (15:16)
[2022-09-03] MEDS: MELATONIN 5 MG TABLETS PO SCH (22:25)
[2022-09-03] MEDS: THIAMINE HCL 100 MG TABLET (FP) PO SCH (22:25)
[2022-09-03] MEDS: METHOCARBAMOL 500 MG TABLET PO PRN (22:26)
[2022-09-04] MEDS: diazePAM 5 MG TABLET PO PRN ×3 (01:01→19:41)
[2022-09-04] MEDS: diazePAM 5 MG TABLET PO SCH ×4 (05:53→22:28)
[2022-09-04] MEDS: NICOTINE 10 MG CARTRIDGE (INHALER) IH PRN (06:59)
[2022-09-04] MEDS: NICOTINE 14 MG/24 HOURS TOPICAL PATCH TD SCH (10:16)
[2022-09-04] MEDS: PRENATAL VITAMINS W/ FOLIC ACID TABLET (FP) PO SCH (10:16)
[2022-09-04] MEDS: METHOCARBAMOL 500 MG TABLET PO PRN ×2 (10:18→19:41)
[2022-09-04 12:37] LABS: HEMATOCRIT 40.7 % (32.4-45.2); MCH 33.3 pg (25.7-33.7); MCHC 34.4 g/dl (32.0-36.0); MEAN PLT VOLUME 9.6 fl (7.5-11.1); PLATELET COUNT 385 10^3/uL (134-434); RDW 12.6 % (11.6-15.6); WHITE BLOOD COUNT 7.1 K/mm3 (4.0-10.0)
[2022-09-04 13:11] LABS: CALCIUM 9.4 mg/dL (8.5-10.1)
[2022-09-04 13:12] LABS: ALBUMIN 4.4 g/dl (3.4-5.0); BLOOD UREA NITROGEN 9.6 mg/dL (7-18)
[2022-09-04 13:15] LABS: CREATININE 0.5 mg/dL (0.55-1.3)
[2022-09-04 13:16] LABS: BILIRUBIN,TOTAL 0.7 mg/dL (0.2-1)
[2022-09-04 13:17] LABS: TOT PROT 7.5 g/dl (6.4-8.2)
[2022-09-04] MEDS ORDERED: traZODone HCL 50 MG TABLET (FP) PO SCH (22:00)
[2022-09-04] MEDS: MELATONIN 5 MG TABLETS PO SCH (22:26)
[2022-09-04] MEDS: THIAMINE HCL 100 MG TABLET (FP) PO SCH (22:26)
[2022-09-05] MEDS: diazePAM 5 MG TABLET PO SCH ×2 (06:05→14:03)
[2022-09-05] MEDS ORDERED: methaDONE HCL 10 MG TABLET (FOR DETOX USE ONLY) PO ONE (10:00)
[2022-09-05] MEDS: NICOTINE 14 MG/24 HOURS TOPICAL PATCH TD SCH (10:17)
[2022-09-05] MEDS: PRENATAL VITAMINS W/ FOLIC ACID TABLET (FP) PO SCH (10:18)
[2022-09-05] MEDS: METHOCARBAMOL 500 MG TABLET PO PRN (10:18)
[2022-09-05] MEDS: NICOTINE 10 MG CARTRIDGE (INHALER) IH PRN (10:21)
[2022-09-05 13:38] VITALS: BP 129/81; PULSE 67; RESP 18; TEMP 96.9
[2022-09-06] MEDS ORDERED: diazePAM 5 MG TABLET PO SCH (06:00)
[2022-09-07] MEDS ORDERED: diazePAM 5 MG TABLET PO ONE (06:00)
[2022-09-07] MEDS ORDERED: methaDONE HCL 10 MG TABLET (FOR DETOX USE ONLY) PO ONE (10:00)
== END 2022-09-05 13:20 | disposition left against medical advice (07) | DRG 770 ==
LOC: YASAS 09:20 → Y6N 11:06
PROVIDERS: ADMIT Allergy & Immunology; ATTEND Surgery
PROC: HZ2ZZZZ Detoxification Services for Substance Abuse Treatment (ICD-10-PCS; principal; 2022-09-03)
DX: F11.23 Opioid dependence with withdrawal (principal); F13.20 Sedative, hypnotic or anxiolytic dependence, uncomplicated; F12.20 Cannabis dependence, uncomplicated; F17.210 Nicotine dependence, cigarettes, uncomplicated; F19.282 Other psychoactive substance dependence with psychoactive substance-induced sleep disorder; F19.280 Other psychoactive substance dependence with psychoactive substance-induced anxiety disorder; F19.24 Other psychoactive substance dependence with psychoactive substance-induced mood disorder; Z86.69 Personal history of other diseases of the nervous system and sense organs; Z88.0 Allergy status to penicillin; Z28.310 Unvaccinated for COVID-19; Z28.9 Immunization not carried out for unspecified reason
CPT/HCPCS: 36415; 80053; 85027; 86780; C9803-CS; U0003; U0005

== ENCOUNTER 2024-11-02 15:02 | Inpatient (IN) | payer OTHER ==
[2024-11-02 15:40] VITALS: BMI 22.2
[2024-11-02] MEDS ORDERED: MAG HYDROX/AL HYDROX/SIMETH 30 ML UNIT-DOSE CUP PO PRN (17:33)
[2024-11-02] MEDS ORDERED: ONDANSETRON *ODT* 4 MG TABLET SL PRN (17:33)
[2024-11-02] MEDS ORDERED: NALOXONE (NARCAN) HCL 4 MG/0.1 ML SPRAY NS PRN (17:33)
[2024-11-02] MEDS ORDERED: BISMUTH SUBSALICYLATE 524 MG/30 ML PO PRN (17:33)
[2024-11-02] MEDS ORDERED: MAGNESIUM HYDROX 2400MG/30ML ORAL SUSPENSION 30 ML CUP PO PRN (17:33)
[2024-11-02] MEDS ORDERED: DICYCLOMINE HCL 10 MG CAPSULE PO PRN (17:33)
[2024-11-02] MEDS ORDERED: ACETAMINOPHEN 325 MG TABLET (FP) PO PRN (17:33)
[2024-11-02] MEDS ORDERED: BENZOCAINE/MENTHOL (CHLORASEPTIC ) LOZENGE MM PRN (17:33)
[2024-11-02] MEDS ORDERED: POLYETHYLENE GLYCOL (HEALTHYLAX) 3350 17 GM PACKET PO PRN (17:33)
[2024-11-02] MEDS ORDERED: IBUPROFEN 600 MG TABLET (FP) PO PRN (17:33)
[2024-11-02] MEDS ORDERED: LOPERAMIDE HCL 2 MG CAPSULE PO PRN (17:33)
[2024-11-02] MEDS ORDERED: IBUPROFEN 400 MG TABLET (FP) PO PRN (17:33)
[2024-11-02] MEDS ORDERED: guaiFENesin 600 MG TABLET.ER (FP) PO PRN (17:33)
[2024-11-02] MEDS: hydrOXYzine PAMOATE 25 MG CAPSULE (FP) PO PRN (18:20)
[2024-11-02] MEDS: METHOCARBAMOL 500 MG TABLET PO PRN (18:20)
[2024-11-02] MEDS ORDERED: NICOTINE POLACRILEX 2 MG GUM BUC PRN (18:59)
[2024-11-02] MEDS: THIAMINE 100 MG TABLET PO SCH (22:02)
[2024-11-02] MEDS: diazePAM 5 MG TABLET PO PRN (22:02)
[2024-11-02] MEDS: MELATONIN 5 MG TABLETS PO SCH (22:02)
[2024-11-02] MEDS: diazePAM 5 MG TABLET PO SCH (23:20)
[2024-11-03] MEDS ORDERED: methaDONE HCL 10 MG TABLET (FOR DETOX USE ONLY) PO PRN (09:15)
[2024-11-03] MEDS: NICOTINE 14 MG/24 HOURS TOPICAL PATCH TD SCH (10:11)
[2024-11-03] MEDS: PRENATAL VITAMINS W/ FOLIC ACID TABLET (FP) PO SCH (10:11)
[2024-11-03] MEDS: methaDONE HCL 10 MG TABLET (FOR DETOX USE ONLY) PO ONE (10:15)
[2024-11-03 12:12] LABS: HEMATOCRIT 40.8 % (32.4-45.2); HEMOGLOBIN 13.9 GM/dL (10.7-15.3); MCH 34.1 pg (25.7-33.7); MEAN CELL VOLUME 100.2 fl (80-96); MEAN PLT VOLUME 9.6 fl (7.5-11.1); PLATELET COUNT 505 10^3/uL (134-434); RBC 4.07 M/mm3 (3.60-5.2); RDW 14.3 % (11.6-15.6); WHITE BLOOD COUNT 9.1 K/mm3 (4.0-10.0)
[2024-11-03 12:35] LABS: CHLORIDE 106 mmol/L (98-107); POTASSIUM 4.5 mmol/L (3.5-5.1); SODIUM 138 mmol/L (136-145)
[2024-11-03 12:56] LABS: ALBUMIN 4.4 g/dl (3.4-5.0); ANION GAP 9 mmol/L (4-13); BLOOD UREA NITROGEN 12.3 mg/dL (7-18); CO2 24 mmol/L (21-32); GLUCOSE,RANDOM 85 mg/dL (74-106)
[2024-11-03 12:59] LABS: CREATININE 0.5 mg/dL (0.55-1.3); SGOT/AST 22 U/L (15-37); SGPT/ALT 25 U/L (13-61)
[2024-11-03 13:02] LABS: ALK PHOS 100 U/L (45-117); BILIRUBIN,TOTAL 0.7 mg/dL (0.2-1); TOT PROT 7.6 g/dl (6.4-8.2)
[2024-11-03] MEDS: traZODone HCL 100 MG TABLET (FP) PO SCH (22:12)
[2024-11-04] MEDS: diazePAM 5 MG TABLET PO SCH (05:48)
[2024-11-04] MEDS: BENZONATATE 200 MG CAPSULE PO PRN (22:11)
[2024-11-05] MEDS: diazePAM 5 MG TABLET PO SCH (05:57)
[2024-11-05] MEDS: methaDONE HCL 10 MG TABLET (FOR DETOX USE ONLY) PO ONE (09:47)
[2024-11-05] MEDS: BUPRENORPHINE/NALOXONE 0.5 MG/0.125 MG FILM SL ONE ×2 (15:44→22:44)
[2024-11-05] MEDS: SUVOREXANT 5 MG TABLET PO PRN (22:44)
[2024-11-06] MEDS: diazePAM 5 MG TABLET PO ONE (06:16)
[2024-11-06] MEDS: BUPRENORPHINE/NALOXONE 0.5 MG/0.125 MG FILM SL SCH (10:12)
[2024-11-06] MEDS: propRANOLol HCL 10 MG TABLET PO SCH (21:37)
[2024-11-07] MEDS: methaDONE HCL 10 MG TABLET (FOR DETOX USE ONLY) PO ONE (10:15)
[2024-11-07] MEDS: BUPRENORPHINE/NALOXONE 2 MG/0.5 MG FILM PACKET SL SCH (10:16)
[2024-11-08] MEDS: BUPRENORPHINE/NALOXONE 4 MG/1 MG FILM PACKET SL SCH (09:16)
[2024-11-08] MEDS: NALOXONE (NYS OPIOID OVERDOSE PROGRAM) 4 MG/0.1 ML SPRAY NS SCH (09:17)
[2024-11-09 07:03] VITALS: TEMP 97.7
[2024-11-09 09:52] VITALS: BP 129/81; PULSE 97; RESP 16
[2024-11-09] MEDS: BUPRENORPHINE/NALOXONE 8 MG/2 MG FILM PACKET SL ONE (11:13)
== END 2024-11-09 11:34 | disposition home or self-care (01) | DRG 773 ==
LOC: YASAS 15:02 → Y6N 17:36
PROVIDERS: ADMIT Allergy & Immunology; ATTEND Allergy & Immunology
PROC: HZ2ZZZZ Detoxification Services for Substance Abuse Treatment (ICD-10-PCS; principal; 2024-11-02)
DX: F11.23 Opioid dependence with withdrawal (principal); F13.230 Sedative, hypnotic or anxiolytic dependence with withdrawal, uncomplicated; F12.20 Cannabis dependence, uncomplicated; F17.210 Nicotine dependence, cigarettes, uncomplicated; F19.282 Other psychoactive substance dependence with psychoactive substance-induced sleep disorder; F19.24 Other psychoactive substance dependence with psychoactive substance-induced mood disorder; F32.A Depression, unspecified; Z86.69 Personal history of other diseases of the nervous system and sense organs
CPT/HCPCS: 36415; 80053; 80305; 80307; 81025; 85027; 86780; 93005; 93010